=== PATIENT | male | born 1940 | race Caucasian/White ===

== ENCOUNTER 2023-07-26 10:47 | Outpatient (CLI) | payer OTHER, SELFPAY ==
--- NOTE | 2023-07-26 10:55 | USCV_ITS ---
Luis E Warren Age: 82 Gender: M : 1940 Exam Date: 07/26/2023 11:24 Ordering Phys: Michael Reeder Technologist: [place] [facility] [place]: chest pain BP: / HR: 52 Rhythm: Sinus Technical Quality: Adequate MEASUREMENTS (Male / Female) Normal Values 2D ECHO LV Diastolic Diameter PLAX 4.3 cm 4.2 - 5.9 / 3.9 - 5.3 cm IVS Diastolic Thickness 1.2 cm 0.6 - 1.0 / 0.6 - 0.9 cm IVS Systolic Thickness 1.3 cm LVPW Diastolic Thickness 1.3 cm 0.6 - 1.0 / 0.6 - 0.9 cm LVPW Systolic Thickness 1.4 cm LVOT Diameter 2.0 cm LV Ejection Fraction 2D Teich 68.1 % LV Ejection Fraction MOD 2C 67.0 % LV Ejection Fraction 2C AL 65.7 % LA Diameter 4.2 cm RA Systolic Volume 4C AL 34.4 ml RA Systolic Volume 4C MOD 34.1 ml Aorta at Sinotubular Diameter 1.9 cm IVC Diameter 2.2 cm M-MODE LA Ao Ratio MM 1.1 AV Cusp Separation MM 1.4 cm DOPPLER AV Peak Velocity 197.0 cm/s LVOT Peak Velocity 96.0 cm/s AV Area Cont Eq vti 1.2 cm squared AV Area Cont Eq pk 1.5 cm squared MV Peak Velocity 120.0 cm/s MV Area PHT 4.4 cm squared Mitral E to A Ratio 0.7 TV Peak Velocity 156.0 cm/s TR Peak Velocity 212.0 cm/s TR Peak Gradient 18.0 mmHg Right Atrial Pressure 3.0 mmHg Pulmonary Artery Systolic Pressu 21.0 mmHg PV Peak Velocity 139.0 cm/s FINDINGS Left Ventricle Normal LV size with a borderline low ejection fraction of 50 to 55%.mild left ventricular hypertrophy. 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 Mitral Valve Trace to mild mitral regurgitation Aortic Valve No gross abnormalities noted Tricuspid Valve Trace tricuspid valve regurgitation. Pulmonic Valve Pulmonic valve not well visualized. Pericardium Normal pericardium without effusion. Aorta Normal ascending aorta dimension. IVC Normal inferior vena cava. CONCLUSIONS Normal LV size with a borderline low ejection fraction of 50 to 55%.mild left ventricular hypertrophy. Trace to mild mitral regurgitation. Trace tricuspid valve regurgitation. Pacemaker wire is noted in the right atrium right ventricle There is no pericardial effusion. No similar previous studies are available for comparison Dr Carl Monroy MD [facility] (Electronically Signed) Final Date: 27 July 2023 16:17 S
[2023-07-26 11:37] LABS: Add Urine Microscopic? NO; Charge for UA Resulting for Rev
[2023-07-26 11:45] LABS: Bilirubin Urine Neg (Negative); Blood Urine Neg (Negative); Glucose Urine UA Norm (Normal); Ketones Urine Negative (Negative); Leukocyte Esterase Urine Negative (Negative); Nitrate Urine Negative (Negative); Protein Urine Neg (Negative); Specific Gravity, Urine 1.005 (1.005-1.030); Urine Appearance Clear (CLEAR); Urine Color Yellow (Yellow); Urobilinogen Urine Norm (Negative); pH Urine 5 (5-7)
[2023-07-26 12:04] LABS: Alanine Aminotransferase 16 U/L (0-41); Albumin Level 4.4 g/dL (3.5-5.2); Alkaline Phosphatase 58 U/L (40-130); Anion Gap 14.4 (5-19); Aspartate Amino Transferase 21 U/L (0-40); Blood Urea Nitrogen 15 mg/dL (8-23); Calcium 9.1 mg/dL (8.5-10.5); Carbon Dioxide 27 mmol/L (22-29); Chloride 103 mmol/L (98-107); Globulin 2.3 g/dL (1.3-4.6); Glucose 103 mg/dL (65-115); Osmolality Calculated 291 mOsm/kg (285-295); Potassium 4.4 mmol/L (3.5-5.1); Sodium 140 mmol/L (136-145); Total Bilirubin 0.4 mg/dL (0.15-1.2); Total Protein 6.7 g/dL (6.6-8.7)
== END 2023-07-26 10:48 | disposition home or self-care (01) ==
LOC: RAD 10:49
PROVIDERS: Visit Provider Chiropractor
DX: I25.10 Atherosclerotic heart disease of native coronary artery without angina pectoris (principal); I51.7 Cardiomegaly
CPT/HCPCS: 36415; 80053; 81003; 93306